=== PATIENT | female | born 1990 | race Caucasian/White ===

== ENCOUNTER 2018-09-26 20:30 | Emergency (ER) | payer OTHER ==
[~2018-09-26] VITALS: Ht 154.9 cm; Wt 62.0 kg
[2018-09-26 20:35] VITALS: BP 121/59; PULSE 62; RESP 18; Ht 154.9 cm; Wt 62.0 kg
[2018-09-26] MEDS ORDERED: KETOROLAC 60 MG INJ IM STA (23:22)
[2018-09-26] MEDS ORDERED: DEXAMETHASONE 10 MG/ML 1 ML INJ IM ONE (23:30)
[2018-09-26] MEDS ORDERED: CYCLOBENZAPRINE 10 MG TAB PO ONE (23:30)
[2018-09-27] MEDS ORDERED: NAPR-985 PO (01:00)
[2018-09-27] MEDS ORDERED: CYCL10TA7 PO (01:00)
--- NOTE | 2018-09-27 02:07 | ERD ---
ER Documentation Chief Complaint Chief Complaint R SHOULDER PAIN X'S 1 WEEK HPI History of Present Illness: 28-year-old female with a past medical history coming in today with complaint of right shoulder pain that extends to the neck is been present for 1 week. Patient denies injury or trauma. Patient denies fever, chills, appetite. Denies At home pharmacological/nonpharmacological treatment for symptoms: Denies Denies social concerns; Denies recent foreign travel ROS All systems reviewed and are negative except as per history of present illness. Medications Home Meds Active Scripts Cyclobenzaprine Hcl* (Cyclobenzaprine Hcl*) 10 Mg Tablet, 10 MG PO TID for SHOULDER PAIN/MUSCLE SPASM, #15 TAB Prov:JOHN DOOLEY V BOTTOM PAINTER 09/27/18 Naproxen* (Naprosyn*) 500 Mg Tablet, 500 MG PO BID for SHOULDER PAIN/INFLAMMATION for 10 Days, TAB Prov:JOHN DOOLEY V BOTTOM PAINTER 09/27/18 Allergies Allergies: Coded Allergies: No Known Allergy (Unverified , 05/15/14) PMhx/Soc History of Surgery: Yes (LASIK SURGERY 2 YRS AGO) Anesthesia Reaction: No Hx Neurological Disorder: Yes (Headache/injury) Hx Respiratory Disorders: Yes (ASTHMA) Hx Cardiac Disorders: No Hx Psychiatric Problems: No Hx Miscellaneous Medical Probl: No Hx Alcohol Use: No Hx Substance Use: No Hx Tobacco Use: No Smoking Status: Never smoker FmHx Family History: No diabetes, No coronary disease Physical Exam Vitals Vital Signs Date Temp Pulse Resp B/P (MAP) Pulse Ox O2 O2 Flow FiO2 Time Delivery Rate 09/26/18 98.3 62 18 121/59 97 20:35 (79) Physical Exam Const: No acute distress Head: Atraumatic Eyes: Normal Conjunctiva ENT: Normal External Ears, Nose and Mouth. Neck: Full range of motion. No meningismus. Resp: Clear to auscultation bilaterally Cardio: Regular rate and rhythm, no murmurs Abd: Soft, non tender, non distended. Normal bowel sounds Skin: No petechiae or rashes Back: No midline or flank tenderness Ext: No cyanosis, or edema; decreased range of motion secondary to pain to right shoulder with extension and flexion external rotation; tenderness to palpation to trapezius Neur: Awake and alert Psych: Normal Mood and Affect Results 24 hrs Laboratory Tests Test 09/26/18 23:38 POC Beta HCG, Qualitative NEGATIVE Current Medications Medications Dose Sig/Edwina Start Time Status Last (Trade) Ordered Route PRN Stop Time Admin Dose Reason Admin Ketorolac 60 mg ONCE STAT 09/26/18 DC 09/26/18 Tromethamine IM 23:22 09/26/18 23:45 (Toradol) 23:24 10 mg ONCE ONCE 09/26/18 DC 09/26/18 Dexamethasone IM 23:30 09/26/18 23:44 (Decadron) 23:31 10 mg ONCE ONCE 09/26/18 DC 09/26/18 Cyclobenzapri PO 23:30 09/26/18 23:44 ne HCl 23:31 (Flexeril) Procedures/MDM ED course includes a thorough examination and history. Medications: Cyclobenzaprine, ketorolac Imaging: Shoulder x-ray Labs: Urine Low suspicion for life-threatening medical emergency. Low suspicion for orthopedic emergency that requires hospitalization or immediate surgical intervention. Low suspicion for infectious process. Otherwise healthy patient presenting with constellation of symptoms likely representing uncomplicated muscle spasm of right shoulder as characterized by history, physical exam findings, lab findings . Urine negative for infection. Radiology report reviewed and showing no acute fractures or abnormal ities. Patient reassessment : Patient hemodynamically stable. Patient with decreased pain after medication demonstration. Patient desired to go home. Disposition given. No respiratory distress, otherwise relatively well appearing and nontoxic. Patient educated on diagnoses, prescriptions, follow-up care, return precautions. Strict return precautions given for worsening condition; questions answered discharge. Disposition for discharge with followup in 2 days with PCP/clinic. Departure Diagnosis: Primary Impression: Shoulder pain Chronicity: acute Laterality: right Qualified Codes: M25.511 - Pain in right shoulder Additional Impression: Muscle spasm of right shoulder Condition: Stable Patient Instructions: Shoulder Problems, Muscle Strain, Extremity Referrals: [facility] (PCP) [facility] YOU HAVE RECEIVED A MEDICAL SCREENING EXAM AND THE RESULTS INDICATE THAT YOU DO NOT HAVE A CONDITION THAT REQUIRES URGENT TREATMENT IN THE EMERGENCY DEPARTMENT. FURTHER EVALUATION AND TREATMENT OF YOUR CONDITION CAN WAIT UNTIL YOU ARE SEEN IN YOUR DOCTORS OFFICE WITHIN THE NEXT 1-2 DAYS. IT IS YOUR RESPONSIBILITY TO MAKE AN APPOINTMENT FOR FOLOW-UP CARE. IF YOU HAVE A PRIMARY DOCTOR --you should call your primary doctor and schedule an appointment IF YOU DO NOT HAVE A PRIMARY DOCTOR YOU CAN CALL OUR PHYSICIAN REFERRAL HOTLINE AT IF YOU CAN NOT AFFORD TO SEE A PHYSICIAN YOU CAN CHOSE FROM THE FOLLOWING [facility] [address] [place] [facility] [address] [facility] [place] [address] [facility] [address] [facility] [address] [facility]. [facility] [address] [facility]. [facility] YOU HAVE RECEIVED A MEDICAL SCREENING EXAM AND THE RESULTS INDICATE THAT YOU DO NOT HAVE A CONDITION THAT REQUIRES URGENT TREATMENT IN THE EMERGENCY DEPARTMENT. FURTHER EVALUATION AND TREATMENT OF YOUR CONDITION CAN WAIT UNTIL YOU ARE SEEN IN YOUR DOCTORS OFFICE WITHIN THE NEXT 1-2 DAYS. IT IS YOUR RESPONSIBILITY TO MAKE AN APPOINTMENT FOR FOLOW-UP CARE. IF YOU HAVE A PRIMARY DOCTOR --you should call your primary doctor and schedule and appointment IF YOU DO NOT HAVE A PRIMARY DOCTOR YOU CAN CALL OUR PHYSICIAN REFERRAL HOTLINE AT . IF YOU CAN NOT AFFORD TO SEE A PHYSICIAN YOU CAN CHOSE FROM THE FOLLOWING [facility]: [facility] [address] [place] [address] [facility] [address] [place] [address] [facility] [address] [place] [address] Additional Instructions: Thank you very much for allowing us to participate in your care. Your health and safety is our top priority at [facility]. It is important to read all discharge instructions and education provided in your discharge packet. Call your primary care doctor TOMORROW for an appointment during the next 2-4 days and bring all the information and medications prescribed. Have prescriptions filled and follow precisely the directions on the label. -Naproxen is a anti-inflammatory/pain medication; take this medication daily as prescribed for the next week to help with swelling/inflammation/pain. --Cyclobenzaprine as a muscle relaxer; take this medication daily as prescribed for the next week to help with your muscle spasm. Do not operate heavy machinery while taking this medication; It may make you drowsy. If the symptoms get worse and your provider is unavailable, return to the Emergency Department immediately. JOHN DOOLEY NP September 27, 2018 02:07
== END 2018-09-27 01:05 | disposition home or self-care (01) ==
LOC: FTE 20:30
DX: M25.511 Pain in right shoulder (principal); J45.909 Unspecified asthma, uncomplicated; M62.838 Other muscle spasm
CPT/HCPCS: 73030; 81025; 96372; J1100; J1885; Z7502; Z7610